=== PATIENT | female | born 1985 | race Caucasian/White ===

== ENCOUNTER 2024-02-18 08:32 | Outpatient (CLI) | payer MEDICAID ==
[~2024-02-18 08:32] MED LIST: IBUP-1984 PO
[2024-02-18] MEDS ORDERED: GADOTERATE MEGLUMINE 7.5 MMOL/15 ML VIAL IV ONE (10:55)
== END 2024-02-18 23:59 | disposition home or self-care (01) ==
LOC: MRI 08:32
PROVIDERS: ATTEND Nurse Practitioner Family
DX: M50.21 Other cervical disc displacement, high cervical region (principal); M51.24 Other intervertebral disc displacement, thoracic region; R56.9 Unspecified convulsions; R20.2 Paresthesia of skin; G93.5 Compression of brain; R53.1 Weakness
CPT/HCPCS: 72156; 72157; A9575